=== PATIENT | male | born 1965 | race Caucasian/White ===

== ENCOUNTER 2017-11-30 05:15 | Inpatient (IN) | payer OTHER ==
[~2017-11-30] VITALS: Ht 170.2 cm; Wt 102.0 kg
[~2017-11-30 05:15] MED LIST: ADV200 PO; APR50 PO; ASPIR-LOW81 M1 PO; ATORVASTATIN CA20 M1 PO; BENAZEPRIL10 M1; CIP250 PO; CIPRO250 MG PO; DICYCLOMINE HCL10 MG PO; FENOFIBRATE145 M1 PO; HYDROXYZINE HYD25 MG PO; L40 PO; LACTULOSE10 GM/152 PO; LOT10 PO; NEP PO; NEPHRO-VITE VITA1 EA PO; PHOS PO; REN800 PO; RENVELA800 M1 PO; TEN25 PO; TEN50 PO; ZAN4 PO; ZOC20 PO
[2017-11-30 05:18] VITALS: Ht 170.2 cm; Wt 102.0 kg
[2017-11-30 05:48] LABS: BASOPHIL % 0.5 % (0-2); PLATELET COUNT 204 x10^3mcL (130-400)
[2017-11-30 05:49] LABS: RED CELL DISTRIBUTION WIDTH 16.1 % (11.5-14.5)
[2017-11-30 06:00] LABS: BILIRUBIN TOTAL 0.49 mg/dL (0.20-1.00); CALCIUM 8.2 mg/dL (8.5-10.1); CARBON DIOXIDE 29.6 mmol/L (21-32); TOTAL PROTEIN, SERUM 7.9 g/dL (6.4-8.2)
[2017-11-30 06:01] LABS: ALBUMIN 3.3 g/dL (3.4-5.0)
[2017-11-30 06:05] LABS: CREATININE SERUM 14.7 mg/dL (0.7-1.3); POTASSIUM SERUM 5.6 mmol/L (3.5-5.1)
[2017-11-30 07:59] VITALS: BP 136/80
[2017-11-30 11:29] LABS: AMYLASE 40 U/L (25-115); LACTIC DEHYDROGENASE (LDH) 250 U/L (100-190); MAGNESIUM 2.2 mg/dL (1.8-2.4); T3 TOTAL 0.97 ng/mL
[2017-11-30 11:30] LABS: CHOLESTEROL 215 mg/dL (<200); CHOLESTEROL/HDL RATIO 7.2; HDL CHOLESTEROL 30 mg/dL (40-60); TRIGLYCERIDES 620 mg/dL (<150)
[2017-11-30 11:35] LABS: FREE T4 0.89 ng/dL (0.76-1.46); FREE THYROXINE INDEX 1.8 ug/dL (1.4-4.5); T4(THYROXINE) 5.5 ug/dL (4.7-13.3)
[2017-11-30 13:00] VITALS: BP 132/81
[2017-11-30 17:34] VITALS: BP 113/60
[2017-11-30 20:20] VITALS: BP 129/73
[2017-11-30 20:49] VITALS: BP 119/66
[2017-11-30 23:20] VITALS: BP 137/63
[2017-12-01 05:34] VITALS: BP 128/61
[2017-12-01 07:15] LABS: BASOPHIL % 0.2 % (0-2); PLATELET COUNT 172 x10^3mcL (130-400)
[2017-12-01 07:16] LABS: RED CELL DISTRIBUTION WIDTH 16.2 % (11.5-14.5)
[2017-12-01 07:25] LABS: CALCIUM 7.9 mg/dL (8.5-10.1); CARBON DIOXIDE 27.4 mmol/L (21-32); MAGNESIUM 1.9 mg/dL (1.8-2.4); PHOSPHOROUS 8.1 mg/dL (2.5-4.9); POTASSIUM SERUM 4.5 mmol/L (3.5-5.1); URIC ACID 5.7 mg/dL (3.5-7.2)
[2017-12-01 08:12] LABS: CREATININE SERUM 12.5 mg/dL (0.7-1.3)
[2017-12-01 09:56] VITALS: BP 112/58
[2017-12-01 14:22] VITALS: BP 112/60
[2017-12-01 14:48] VITALS: BP 112/60
== END 2017-12-01 16:35 | disposition home or self-care (01) | DRG 205 ==
LOC: ED 05:15 → DU 06:30
PROVIDERS: Emergency Medicine; Family Medicine
DX: M94.0 Chondrocostal junction syndrome [Tietze] (principal); N18.6 End stage renal disease; N17.0 Acute kidney failure with tubular necrosis; I12.0 Hypertensive chronic kidney disease with stage 5 chronic kidney disease or end stage renal disease; J44.9 Chronic obstructive pulmonary disease, unspecified; E87.5 Hyperkalemia; E83.51 Hypocalcemia; E83.39 Other disorders of phosphorus metabolism; R73.03 Prediabetes; F17.210 Nicotine dependence, cigarettes, uncomplicated; E78.5 Hyperlipidemia, unspecified; E66.9 Obesity, unspecified; Z68.37 Body mass index [BMI] 37.0-37.9, adult; Z99.2 Dependence on renal dialysis
CPT/HCPCS: 82962; 83880; 84439; G0480; J1644; J1815; J3490; J7030; J7040; Q0092

== ENCOUNTER 2018-01-08 15:42 | Emergency (ER) | payer OTHER ==
[~2018-01-08] VITALS: Ht 170.2 cm; Wt 109.3 kg
[2018-01-08 15:49] VITALS: Ht 170.2 cm; Wt 109.3 kg
[2018-01-08 16:16] LABS: PLATELET COUNT 221 x10^3mcL (130-400)
[2018-01-08 16:19] LABS: RED CELL DISTRIBUTION WIDTH 15.7 % (11.5-14.5)
[2018-01-08 16:27] LABS: BILIRUBIN TOTAL 0.66 mg/dL (0.20-1.00); CALCIUM 8.3 mg/dL (8.5-10.1); CARBON DIOXIDE 26.4 mmol/L (21-32); MAGNESIUM 1.9 mg/dL (1.8-2.4); TOTAL PROTEIN, SERUM 7.3 g/dL (6.4-8.2)
[2018-01-08 16:29] LABS: ALBUMIN 3.3 g/dL (3.4-5.0)
[2018-01-08 16:31] LABS: CREATININE SERUM 13.6 mg/dL (0.7-1.3); POTASSIUM SERUM 5.9 mmol/L (3.5-5.1)
[2018-01-08 16:46] LABS: BAND NEUTROPHIL 0 % (0-10); BASOPHIL 0 % (0-2); MONOCYTE 4 % (0-7); PLATELET MORPHOLOGY PLATELETS NORMAL; SEGMENTED NEUTROPHILS 80 % (37-75); rbc morphology (normal/abnorm) NORMAL (NORMAL)
[2018-01-08 19:39] VITALS: BP 147/87
== END 2018-01-08 19:39 | disposition home or self-care (01) ==
LOC: ED 15:42
PROVIDERS: Emergency Medicine
DX: E87.5 Hyperkalemia (principal); I12.9 Hypertensive chronic kidney disease with stage 1 through stage 4 chronic kidney disease, or unspecified chronic kidney disease; E11.22 Type 2 diabetes mellitus with diabetic chronic kidney disease; N18.9 Chronic kidney disease, unspecified; J44.9 Chronic obstructive pulmonary disease, unspecified
CPT/HCPCS: 36415; Q0092

== ENCOUNTER 2018-02-05 08:22 | Emergency (ER) | payer OTHER ==
[~2018-02-05] VITALS: Ht 172.7 cm; Wt 108.4 kg
[2018-02-05 08:29] VITALS: Ht 172.7 cm; Wt 108.4 kg
[2018-02-05 09:14] LABS: BILIRUBIN TOTAL 0.68 mg/dL (0.20-1.00); CALCIUM 7.8 mg/dL (8.5-10.1); CARBON DIOXIDE 33.1 mmol/L (21-32); POTASSIUM SERUM 4.2 mmol/L (3.5-5.1); TOTAL PROTEIN, SERUM 7.4 g/dL (6.4-8.2)
[2018-02-05 09:17] LABS: BASOPHIL % 0.4 % (0-2); PLATELET COUNT 234 x10^3mcL (130-400); RED CELL DISTRIBUTION WIDTH 14.1 % (11.5-14.5)
[2018-02-05 09:23] LABS: ALBUMIN 3.3 g/dL (3.4-5.0); CREATININE SERUM 11.2 mg/dL (0.7-1.3)
[2018-02-05 10:39] VITALS: BP 152/88
== END 2018-02-05 10:39 | disposition home or self-care (01) ==
LOC: ED 08:22
PROVIDERS: Emergency Medicine
DX: E11.22 Type 2 diabetes mellitus with diabetic chronic kidney disease (principal); N18.6 End stage renal disease; I12.0 Hypertensive chronic kidney disease with stage 5 chronic kidney disease or end stage renal disease; J81.1 Chronic pulmonary edema; J44.9 Chronic obstructive pulmonary disease, unspecified; Z99.2 Dependence on renal dialysis; Z98.890 Other specified postprocedural states
CPT/HCPCS: 83880; J3490; Q0092

== ENCOUNTER 2018-02-21 14:35 | Inpatient (IN) | payer OTHER ==
[~2018-02-21] VITALS: Ht 170.2 cm; Wt 107.7 kg
[2018-02-21 15:40] LABS: BASOPHIL % 1.1 % (0-2); PLATELET COUNT 244 x10^3mcL (130-400); RED CELL DISTRIBUTION WIDTH 15.7 % (11.5-14.5)
[2018-02-21 15:45] LABS: ALBUMIN 3.4 g/dL (3.4-5.0); BILIRUBIN TOTAL 0.42 mg/dL (0.20-1.00); CALCIUM 8.6 mg/dL (8.5-10.1); CARBON DIOXIDE 29.6 mmol/L (21-32); POTASSIUM SERUM 4.2 mmol/L (3.5-5.1)
[2018-02-21 15:48] LABS: CREATININE SERUM 10.4 mg/dL (0.7-1.3)
[2018-02-21] MEDS ORDERED: NOR10 PO (16:17)
[2018-02-21] MEDS ORDERED: CATAPRES0.1 MG PO (16:17)
[2018-02-21] MEDS ORDERED: ALPRAZOLAM0.25 MG PO (16:18)
[2018-02-21] MEDS ORDERED: AURYXIA1 GM PO (16:19)
[2018-02-21] MEDS ORDERED: CALCITRIOL0.5 MCG PO (16:20)
[2018-02-21] MEDS ORDERED: NEPHRO-VITE VITA1 EA PO (16:20)
[2018-02-21 16:36] LABS: PHOSPHOROUS 1.7 mg/dL (2.5-4.9)
[2018-02-21 16:45] LABS: FREE T4 0.87 ng/dL (0.76-1.46); FREE THYROXINE INDEX 2.3 ug/dL (1.4-4.5); T4(THYROXINE) 6.9 ug/dL (4.7-13.3)
[2018-02-21 16:46] LABS: CHOLESTEROL 209 mg/dL (<200); CHOLESTEROL/HDL RATIO 6.1; HDL CHOLESTEROL 34 mg/dL (40-60); T3 TOTAL 0.93 ng/mL; TRIGLYCERIDES 563 mg/dL (<150)
[2018-02-21 17:03] VITALS: BP 146/91
[2018-02-21 21:20] VITALS: BP 135/77
[2018-02-22 01:59] LABS: IRON 80 ug/dL (65-170)
[2018-02-22 02:03] LABS: TOTAL IRON BINDING CAPACITY 212 ug/dL (250-450)
[2018-02-22 04:46] VITALS: BP 138/78
[2018-02-22 06:30] LABS: CALCIUM 8.4 mg/dL (8.5-10.1); CARBON DIOXIDE 25.6 mmol/L (21-32); PHOSPHOROUS 3.8 mg/dL (2.5-4.9); POTASSIUM SERUM 5.1 mmol/L (3.5-5.1)
[2018-02-22 06:45] LABS: BASOPHIL % 0.5 % (0-2); PLATELET COUNT 202 x10^3mcL (130-400)
[2018-02-22 06:46] LABS: RED CELL DISTRIBUTION WIDTH 15.6 % (11.5-14.5)
[2018-02-22 06:52] LABS: CREATININE SERUM 11.5 mg/dL (0.7-1.3)
[2018-02-22 09:13] VITALS: BP 132/74
[2018-02-22 13:21] VITALS: BP 139/77
[2018-02-22] MEDS ORDERED: GOOD SENSE ASPI81 M3 PO (16:45)
[2018-02-22] MEDS ORDERED: ATORVASTATIN CA40 M1 PO (16:47)
[2018-02-22] MEDS ORDERED: TOPROL XL25 MG PO (16:47)
[2018-02-22] MEDS ORDERED: GLU5 PO (16:48)
[2018-02-22 16:51] VITALS: BP 139/77
== END 2018-02-22 17:38 | disposition home or self-care (01) | DRG 311 ==
LOC: ED 14:35 → DU 15:58
PROVIDERS: Emergency Medicine; Internal Medicine
DX: I24.8 Other forms of acute ischemic heart disease (principal); N18.6 End stage renal disease; N17.0 Acute kidney failure with tubular necrosis; I12.0 Hypertensive chronic kidney disease with stage 5 chronic kidney disease or end stage renal disease; D68.69 Other thrombophilia; I16.0 Hypertensive urgency; E11.22 Type 2 diabetes mellitus with diabetic chronic kidney disease; E11.65 Type 2 diabetes mellitus with hyperglycemia; E83.39 Other disorders of phosphorus metabolism; J44.9 Chronic obstructive pulmonary disease, unspecified; D63.8 Anemia in other chronic diseases classified elsewhere; E78.5 Hyperlipidemia, unspecified; F17.210 Nicotine dependence, cigarettes, uncomplicated; Z99.2 Dependence on renal dialysis
CPT/HCPCS: 78598; 82962; 83880; 84439; 85378; A9540; J1644; J3010; J3475; J7030; J7050; J7620; Q0092

== ENCOUNTER 2018-08-18 11:03 | Emergency (ER) | payer OTHER ==
[~2018-08-18] VITALS: Ht 172.7 cm; Wt 113.4 kg
[~2018-08-18 11:03] MED LIST changes: +ALPRAZOLAM0.25 MG PO; +ATORVASTATIN CA40 M1 PO; +AURYXIA1 GM PO; +CALCITRIOL0.5 MCG PO; +CATAPRES0.1 MG PO; +GLU5 PO; +GOOD SENSE ASPI81 M3 PO; +NOR10 PO; +TOPROL XL25 MG PO
[2018-08-18 14:13] VITALS: BP 118/69
== END 2018-08-18 14:13 | disposition home or self-care (01) ==
LOC: ED 11:03
DX: S93.401A Sprain of unspecified ligament of right ankle, initial encounter (principal); J44.9 Chronic obstructive pulmonary disease, unspecified; E11.22 Type 2 diabetes mellitus with diabetic chronic kidney disease; I12.0 Hypertensive chronic kidney disease with stage 5 chronic kidney disease or end stage renal disease; N18.6 End stage renal disease; Z99.2 Dependence on renal dialysis; W01.0XXA Fall on same level from slipping, tripping and stumbling without subsequent striking against object, initial encounter; Y93.89 Activity, other specified; Y92.89 Other specified places as the place of occurrence of the external cause; Y99.8 Other external cause status